=== PATIENT | male | born 1995 | race African-American/Black ===

== ENCOUNTER 2016-11-17 21:00 | Emergency (ER) | payer BC, OTHER ==
[~2016-11-17] VITALS: Ht 177.8 cm; Wt 97.0 kg
[2016-11-17 21:02] VITALS: BP 122/56; PULSE 56; RESP 16; TEMP 97.9; O2SAT 99
[2016-11-17] MEDS ORDERED: ONDANSETRON ODT 4 MG TAB PO ONE (23:15)
--- NOTE | 2016-11-17 23:18 | PD ---
HPI Chief Complaint: GI Complaint Time Seen by Provider: 23:11 Travel History International Travel<30 days: No Contact w/Intl Traveler<30days: No Traveled to known affect area: No History of Present Illness HPI Patient is a 21-year-old male who presents to emergency room with intermittent nausea. Patient reports that he has been drinking heavily over the past week as this has been his spring break. Reports that he has been feeling nauseous for the past few days, reports that he is able to tolerate fluids and eat foods. Patient denies any abdominal pain, denies fevers or chills. Patient reports that he is here for prescription for some nausea medications. Patient with no chest pain or shortness of breath, no cough or congestion, denies dysuria, urinary urgency or frequency. PFSH Past Medical History Diminished Hearing: No Immunizations Current: Yes Sickle Cell Disease: Yes (SICKLE CELL TRAIT) Social History Alcohol Use: Yes (SOCIALLY) Tobacco Use: No Substance Use: No Allergies-Medications (Allergen,Severity, Reaction): Coded Allergies: No Known Allergies (Unverified , 11/17/16) Reported Meds & Prescriptions Reported Meds & Active Scripts Active Zofran Odt (Ondansetron Odt) 4 Mg Tab 4 Mg SL Q6HR PRN Review of Systems General / Constitutional: No: Fever Eyes: No: Visual changes HENT: No: Headaches Cardiovascular: No: Chest Pain or Discomfort Respiratory: No: Shortness of Breath Gastrointestinal: Positive: Nausea, No: Vomiting, Abdominal Pain Genitourinary: No: Dysuria Musculoskeletal: No: Pain Skin: No Rash Neurologic: No: Weakness Psychiatric: No: Depression Endocrine: No: Polydipsia Hematologic/Lymphatic: No: Easy Bruising Physical Exam Narrative GENERAL: No acute distress, nontoxic SKIN: Warm and dry. HEAD: Atraumatic. Normocephalic. EYES: Pupils equal and round. No scleral icterus. No injection or drainage. ENT: No nasal bleeding or discharge. Mucous membranes pink and moist. NECK: Trachea midline. No JVD. CARDIOVASCULAR: Regular rate and rhythm. No murmur appreciated. RESPIRATORY: No accessory muscle use. Clear to auscultation. Breath sounds equal bilaterally. GASTROINTESTINAL: Abdomen soft, non-tender, nondistended. Hepatic and splenic margins not palpable. MUSCULOSKELETAL: No obvious deformities. No clubbing. No cyanosis. No edema. NEUROLOGICAL: Awake and alert. No obvious cranial nerve deficits. Motor grossly within normal limits. Normal speech. PSYCHIATRIC: Patient with flat affect Data Data Last Documented VS Vital Signs Date Time Temp Pulse Resp B/P Pulse Ox O2 Delivery O2 Flow Rate FiO2 11/17/16 21:02 97.9 56 16 122/56 99 Orders Ondansetron Odt (Zofran Odt) (11/17/16 23:15) Urinalysis - C+S If Indicated (11/17/16 23:15) Labs Laboratory Tests Test 11/18/16 01:19 Urine Color YELLOW Urine Turbidity CLOUDY Urine pH 7.0 Urine Specific [place] 1.016 Urine Protein NEG mg/dL Urine Glucose (UA) NEG mg/dL Urine Ketones NEG mg/dL Urine Occult Blood NEG Urine Nitrite NEG Urine Bilirubin NEG Urine Urobilinogen 2.0 MG/DL Urine Leukocyte Esterase NEG Urine RBC 2 /hpf Urine Squamous Epithelial <1 /hpf Cells Urine Amorphous Sediment RARE Urine Bacteria RARE /hpf Urine Mucus FEW /lpf Microscopic Urinalysis Comment CULT NOT INDICATED MDM Medical Decision Making Medical Screen Exam Complete: Yes Emergency Medical Condition: Yes Interpretation(s) Vital Signs Date Time Temp Pulse Resp B/P Pulse Ox O2 Delivery O2 Flow Rate FiO2 11/17/16 21:02 97.9 56 16 122/56 99 Differential Diagnosis Nausea could be secondary to electrolyte abnormalities, dehydration, alcohol abuse, drug abuse Narrative Course 21-year-old male who presents to emergency room with complaints of nausea for the past week. Patient reports that he had been drinking heavily for the past week as this was a spring break. Reports that he did not drink any alcohol today. Patient reports that he has been eating and drinking like his normal self but feels nauseous and has been feeling nauseous for the past week. Patient requesting scripts for nausea medications. Patient refusing IV as well as labwork at this time. Patient requesting a pill for nausea as well as ced martha. Overall, patient is nontoxic. Patient is sleeping on exam, I had to encourage patient to wake up and talk to me to obtain history of present illness. Patient absolutely denies drinking alcohol today or using drugs. Patient reports that he is only here for some nausea medications and ced martha. Abdomen is soft, nontender, nondistended, no peritoneal signs. Zofran ODT ordered, will give by mouth trial. Patient sleeping on stretcher, patient does not appear nauseous or in acute distress. Patient unable to give urine stable at this time. Will discharge patient to follow up with his primary care doctor. Signs and symptoms of when to return to the emergency room was reviewed with patient detail. patient tolerated PO trial. he will return to ER as needed Diagnosis Primary Impression: Nausea Patient Instructions: General Instructions Additional Instructions: Please return to emergency room as needed Please call your primary care doctor for earliest follow-up Med/Other Pt SpecificInfo: Prescription(s) given Scripts Ondansetron Odt (Zofran Odt)4 Mg Tab4 Mg SL Q6HR PRN (Nausea/Vomiting) #30 TAB Ref 0 Prov:Christal Matthew DO 11/18/16 Disposition: 01 DISCHARGE HOME Condition: Stable Christal Matthew DO Nov 17, 2016 23:18
[2016-11-18] MEDS ORDERED: ZOFR4TAB3 SL (00:43)
[2016-11-18 01:36] LABS: BACTERIA, URINE RARE /hpf; BLOOD, URINE NEG (NEG); GLUCOSE,URINE NEG (NEG); KETONE, URINE NEG (NEG); MUCUS URINE FEW /lpf (OCC); NITRITE,URINE NEG (NEG); SQUAMOUS EPITHELIAL CELL URINE <1 /hpf (0-5); URINE COLOR YELLOW (YELLW/STRAW)
[2016-11-18 01:38] LABS: COMMENT (UR) CULT NOT INDICATED; CULTURE IF INDICATED CULT NOT INDICATED
== END 2016-11-18 02:17 | disposition home or self-care (01) ==
LOC: NEPE 21:00
DX: R11.0 Nausea (principal); D57.3 Sickle-cell trait
CPT/HCPCS: 81001; 99283

== ENCOUNTER 2018-01-30 11:09 | Emergency (ER) | payer BC, OTHER ==
[~2018-01-30] VITALS: Ht 177.8 cm; Wt 92.0 kg
[~2018-01-30 11:09] MED LIST: ZOFR4TAB3 SL
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
[2018-01-30] MEDS ORDERED: ROBA500T PO (12:33)
[2018-01-30] MEDS ORDERED: IBUP1TAB7 PO (12:33)
== END 2018-01-30 13:38 | disposition home or self-care (01) ==
LOC: NEPD 11:09
DX: S13.4XXA Sprain of ligaments of cervical spine, initial encounter (principal); S50.11XA Contusion of right forearm, initial encounter; S80.02XA Contusion of left knee, initial encounter; V49.40XA Driver injured in collision with unspecified motor vehicles in traffic accident, initial encounter
CPT/HCPCS: 73090; 73564; 99284